=== PATIENT | female | born 1960 | race Caucasian/White ===

== ENCOUNTER 2016-08-20 15:06 | Outpatient (CLI) | payer OTHER ==
[~2016-08-20 15:06] MED LIST: BLACK COHOSH20 MG PO; FISH OIL1000 M1; MULTIPLE VITAMIN PO; TOPROL XL50 MG PO; VITAMIN D-31000 UNIT PO; ZANTAC 150 MAX150 MG PO
--- NOTE | 2016-08-20 16:02 | DIAGNOSTIC IMAGING REPORT ---
PROCEDURE: DEXA BONE DENSITY STUDY CLINICAL INDICATION: Screening, prior hip or vertebral fracture. Current vitamin D and calcium supplementation. COMPARISON: None. FINDINGS: LUMBAR SPINE: Bone mineral density 1.040 g/cm2, T score -0.1, normal . LEFT HIP: Bone mineral density 0.994 g/cm2, T score 0.4, normal . LEFT FEMORAL NECK: Bone mineral density 0.755 g/cm2, T score -0.8, normal . FRACTURE RISK CALCULATION ( when applicable): 10-year fracture risk not calculated because all T scores are at or above -1.0 . (T score greater or equal to -1.0 to: NORMAL) (T score from -1.1 to -2.4: OSTEOPENIA) (T score ess than or equal to -2.5: OSTEOPOROSIS) IMPRESSION: 1. Normal bone mineral density. No increased risk of fracture.
== END 2016-08-20 23:00 ==
LOC: XR SRH 15:06
DX: Z13.820 Encounter for screening for osteoporosis (principal)

== ENCOUNTER 2016-10-13 09:54 | Outpatient (CLI) | payer OTHER ==
--- NOTE | 2016-10-13 15:50 | DIAGNOSTIC IMAGING REPORT ---
PROCEDURE: MG BILATERAL SCREENING W/CAD INDICATION: SCREENING TECHNIQUE: Bilateral CC and MLO digital views. COMPARISON: . To 10/12/2014, 10/04/2013, and 09/04/2011. FINDINGS: Computer-aided detection applied. Mildly to moderately dense. No change. IMPRESSION: 1. Negative mammogram RESULT CODE: 1- Negative. A. A negative report should not delay biopsy if a dominant or clinically suspicious mass is present. 10-15% of cancers are not identified by x-ray. B. A negative report may reinforce clinical impression. C. Adenosis and dense breasts may obscure an underlying neoplasm. D. False positive reports average 6-10%. E.. A yearly screening mammogram is recommended. A reminder letter will be scheduled.
== END 2016-10-13 23:00 ==
LOC: MAM SRH 09:54
DX: Z12.31 Encounter for screening mammogram for malignant neoplasm of breast (principal)